=== PATIENT | male | born 1980 | race Two or more races ===

== ENCOUNTER 2019-03-28 07:46 | Emergency (ER) | payer SELFPAY ==
[~2019-03-28] VITALS: Ht 188 cm; Wt 83.0 kg
--- NOTE | 2019-03-28 07:46 | NUR ---
PT BIB FROM THE STREET FOR BIZARRE BEHAVIOR, PT TO BED 6, PT NOT ANSWERING QUESTIONS APPROPRIETLY, PT ON MONITOR, VSS, NAD NOTED, AT FOR EVAL
[2019-03-28] MEDS ORDERED: HALOPERIDOL LACTATE INJ 5 MG/ML VIAL ONE (07:49)
[2019-03-28] MEDS ORDERED: LORAZEPAM INJ 2 MG/ML VIAL ONE ×4 (07:49→20:14)
--- NOTE | 2019-03-28 07:55 | NUR ---
WANDED BY SECURITY
[2019-03-28] MEDS ORDERED: HALOPERIDOL LACTATE INJ 5 MG/ML VIAL IM ONE (08:00)
[2019-03-28] MEDS ORDERED: LORAZEPAM INJ 2 MG/ML VIAL IM ONE (08:00)
[2019-03-28 08:03] LABS: BASOPHILS % (AUTO) 0.3 % (0.0-2.0); EOSINOPHILS % (AUTO) 0.2 % (0.0-6.0); HEMATOCRIT 40 % (39-51); HEMOGLOBIN 13.7 g/dL (13.5-17.5); LYMPHOCYTES # (AUTO) 0.9 /CMM (0.8-4.8); LYMPHOCYTES % (AUTO) 8.9 % (20.0-44.0); MEAN CORPUSCULAR HGB CONC 34 g/dl (31.0-36.0); MEAN CORPUSCULAR VOLUME 92 fL (80-96); MONOCYTES # (AUTO) 0.8 /CMM (0.1-1.30); MONOCYTES % (AUTO) 8.1 % (2.0-12.0); NEUTROPHILS # (AUTO) 8.4 /CMM (1.8-8.9); NEUTROPHILS % (AUTO) 82.5 % (43.0-81.0); PLATELET COUNT (AUTO) 208 /CMM (150-450); RED BLOOD CELL COUNT(AUTO) 4.35 MIL/uL (4.5-6.0); WHITE BLOOD COUNT (AUTO) 10.2 K/uL (4.3-11.0)
[2019-03-28 08:11] LABS: CALCIUM, SERUM 9.2 mg/dL (8.5-10.1); CARBON DIOXIDE 25 mmol/L (21-32); CHLORIDE 105 mmol/L (98-107); CREATININE 1.8 mg/dL (0.6-1.3); GLUCOSE 138 mg/dL (74-106); POTASSIUM 3.9 mmol/L (3.5-5.1); SODIUM SERUM 142 mmol/L (136-145); UREA NITROGEN, BLOOD 35 mg/dL (7-18)
[2019-03-28 08:21] LABS: ACETAMINOPHEN 0 ug/ml (10-30); ALANINE AMINOTRANSFERASE 55 U/L (12-78); ALBUMIN 3.7 g/dL (3.4-5.0); ALCOHOL, BLOOD < 3 mg/dL (0-0); ALKALINE PHOSPHATASE 67 U/L (46-116); ASPARTATE AMINOTRANSFERASE 113 U/L (15-37); BILIRUBIN,DIRECT 0.1 mg/dL (0.0-0.2); BILIRUBIN,TOTAL 0.5 mg/dL (0.2-1.0); SALICYLATE 2.6 mg/dL (2.8-20.0); TOTAL PROTEIN, SERUM 7.5 g/dL (6.4-8.2)
[2019-03-28 08:29] LABS: APPEARANCE,URINE Slightly Cloudy (CLEAR); BILIRUBIN,URINE SMALL (NEGATIVE); BLOOD, URINE Negative Ery/uL (NEGATIVE); COLOR,URINE Yellow (YELLOW); KETONES,URINE Trace (NEGATIVE); LEUKOCYTE ESTERASE ,URINE Negative (NEGATIVE); NITRITE, URINE Negative (NEGATIVE); PH,URINE 5.5 (5.0-8.0); PROTEIN,URINE 100 mg/dl (NEGATIVE); UGLUCOSE Negative (NEGATIVE); UROBILINOGEN,URINE 0.2 EU/dL (0.2)
[2019-03-28 08:39] LABS: BACTERIA,URINE Rare /HPF (None Seen); RBC,URINE 0-3 /HPF (0-2); SQUAMOUS EPITHELIAL CELL,UR Few /HPF (None Seen); URINE AMORPHOUS URATE Moderate /HPF (None Seen)
--- NOTE | 2019-03-28 10:08 | NUR ---
PROVIDED W MEAL TRAY, PT STILL SLEEPING, PLACED MEAL TRAY AT BEDSIDE
--- NOTE | 2019-03-28 12:00 | NUR ---
Patient is resting comfortably in bed with eyes closed. Easily aroused. VSS
--- NOTE | 2019-03-28 14:40 | NUR ---
MEDICATED ORDERED, PT GETTING RESTLESS TRYING TO GET UP.
[2019-03-28] MEDS ORDERED: LORAZEPAM INJ 2 MG/ML VIAL IV ONE ×3 (15:00→20:30)
[2019-03-28] MEDS ORDERED: IV NS 0.9% 1,000 ML IV ONE (15:00)
--- NOTE | 2019-03-28 20:27 | NUR ---
ASSUMED CARE. PT STILL CONFUSED, RESTLESS & TRYING TO GET OUT OF GURNEY. MEDICATED ORDERED FOR CT SCAN.
[2019-03-28] MEDS ORDERED: IV D5/0.45 NACL 1,000 ML IV ONE (20:30)
--- NOTE | 2019-03-28 21:29 | NUR ---
PT BACK FROM CT. PT STABLE, RR EVEN & UNLABORED. EASILY AWAKEN BY VERBAL STIMULI & WILL GO BACK TO SLEEP. WILL CONT TO MONITOR.
[2019-03-29] MEDS ORDERED: OLANZAPINE 10 MG VIAL IM ONE ×4 (00:06→09:00)
[2019-03-29] MEDS ORDERED: WATER FOR INJECTION,STERILE 10 ML ONE ×2 (00:06→08:59)
--- NOTE | 2019-03-29 01:07 | NUR ---
pt sleeping in [place]. no signs of distress noted. pt vital signs stable. will cont to monitor pt.
[2019-03-29] MEDS ORDERED: LORAZEPAM INJ 2 MG/ML VIAL ONE (08:58)
[2019-03-29] MEDS ORDERED: LORAZEPAM INJ 2 MG/ML VIAL IVP ONE (09:00)
--- NOTE | 2019-03-29 09:00 | NUR ---
PT IS AGITATED TRYING TO GET OUT OF BED. NOT MAKING SENSE, YELLING. DR FINCH MADE AWARE.
--- NOTE | 2019-03-29 10:27 | NUR ---
PT SLEEPING, ON MONITOR. STABLE VITALS.
--- NOTE | 2019-03-29 12:53 | NUR ---
PROVIDED PT WITH FOOD TRAY
--- NOTE | 2019-03-29 14:47 | NUR ---
ATTEMPT TO MAKE PT MORE COMFORTABLE. PROVIDED WATER
--- NOTE | 2019-03-29 15:23 | NUR ---
Patient is resting comfortably in bed with eyes closed. Easily aroused. VSS
[2019-03-29] MEDS ORDERED: IV NS 0.9% 1,000 ML BAG IV ONE (16:30)
[2019-03-29] MEDS ORDERED: ONDANSETRON HCL/PF 4 MG/2 ML VIAL IVP ONE (16:30)
--- NOTE | 2019-03-29 16:48 | NUR ---
CALLED [facility] FOR TELE BED
[2019-03-29] MEDS ORDERED: IV NS 0.9% 1,000 ML IV PRN (17:28)
[2019-03-29] MEDS ORDERED: MAG HYDROX/AL HYDROX/SIMETH 30 ML UDC PO PRN (17:30)
[2019-03-29] MEDS ORDERED: Z GUARD REMEDY 2 OZ OINT TP PRN (17:30)
[2019-03-29] MEDS ORDERED: LORAZEPAM INJ 2 MG/ML VIAL IV PRN (17:30)
[2019-03-29] MEDS ORDERED: ONDANSETRON HCL/PF 4 MG/2 ML VIAL IVP PRN (17:30)
[2019-03-29] MEDS ORDERED: MAGNESIUM HYDROXIDE 30 ML UDC PO PRN (17:30)
[2019-03-29] MEDS ORDERED: ACETAMINOPHEN 325 MG TABLET PO PRN (17:30)
--- NOTE | 2019-03-29 17:30 | NUR ---
IV NOT PATENT, REMOVED AND PRESSURE APPLIED. PT REFUSED NEW IV INSERTION. AWARE.
--- NOTE | 2019-03-29 17:34 | NUR ---
TELE BED 612-4
[2019-03-29] MEDS ORDERED: ONDANSETRON HCL/PF 4 MG/2 ML VIAL ONE (17:37)
[2019-03-29 17:51] LABS: BASOPHILS # (AUTO) 0.1 /CMM (0.0-0.2); BASOPHILS % (AUTO) 0.9 % (0.0-2.0); EOSINOPHILS % (AUTO) 1.8 % (0.0-6.0); HEMATOCRIT 43 % (39-51); HEMOGLOBIN 14.7 g/dL (13.5-17.5); LYMPHOCYTES # (AUTO) 1.3 /CMM (0.8-4.8); LYMPHOCYTES % (AUTO) 17.3 % (20.0-44.0); MEAN CORPUSCULAR HGB CONC 34 g/dl (31.0-36.0); MEAN CORPUSCULAR VOLUME 93 fL (80-96); MONOCYTES # (AUTO) 0.7 /CMM (0.1-1.30); MONOCYTES % (AUTO) 9.8 % (2.0-12.0); NEUTROPHILS # (AUTO) 5.2 /CMM (1.8-8.9); NEUTROPHILS % (AUTO) 70.2 % (43.0-81.0); PLATELET COUNT (AUTO) 209 /CMM (150-450); RED BLOOD CELL COUNT(AUTO) 4.68 MIL/uL (4.5-6.0); WHITE BLOOD COUNT (AUTO) 7.4 K/uL (4.3-11.0)
[2019-03-29 17:56] LABS: CALCIUM, SERUM 8.9 mg/dL (8.5-10.1); CARBON DIOXIDE 28 mmol/L (21-32); CHLORIDE 106 mmol/L (98-107); CREATININE 1.1 mg/dL (0.6-1.3); GLUCOSE 85 mg/dL (74-106); POTASSIUM 4.7 mmol/L (3.5-5.1); SODIUM SERUM 143 mmol/L (136-145); UREA NITROGEN, BLOOD 20 mg/dL (7-18)
[2019-03-29 18:02] LABS: ALANINE AMINOTRANSFERASE 63 U/L (12-78); ALBUMIN 3.5 g/dL (3.4-5.0); ALKALINE PHOSPHATASE 70 U/L (46-116); ASPARTATE AMINOTRANSFERASE 105 U/L (15-37); BILIRUBIN,DIRECT 0.1 mg/dL (0.0-0.2); BILIRUBIN,TOTAL 0.4 mg/dL (0.2-1.0); LIPASE 111 U/L (73-393); TOTAL PROTEIN, SERUM 7.3 g/dL (6.4-8.2)
--- NOTE | 2019-03-29 18:02 | NUR ---
REPORT GIVEN TO DANIKA ORDONEZ FOR 326-2 T
[2019-03-29 18:04] LABS: ALBUMIN 3.6 g/dL (3.4-5.0); BILIRUBIN,TOTAL 0.4 mg/dL (0.2-1.0); CREATININE 1.1 mg/dL (0.6-1.3); MAGNESIUM 1.9 mg/dL (1.8-2.4); PHOSPHORUS 3.9 mg/dL (2.5-4.9); POTASSIUM 4.5 mmol/L (3.5-5.1); TOTAL PROTEIN, SERUM 7.6 g/dL (6.4-8.2)
[2019-03-29 18:12] LABS: THYROID STIMULATING HORMONE 1.55 uIU/mL (0.358-3.74)
--- NOTE | 2019-03-29 19:06 | NUR ---
Patient given written and verbal discharge instructions. Patient verbalizes understanding of instructions. Patient is ambulatory with steady gait. Refuses offer of senior living placement. Patient given list of available shelters in surrounding area.
[2019-03-29 19:08] VITALS: BP 132/78
[2019-03-30] MEDS ORDERED: PANTOPRAZOLE 40 MG TABLET.DR PO SCH (07:30)
== END 2019-03-29 19:10 | disposition home or self-care (01) ==
LOC: EDBD 07:46 → ER 07:46 → MED 03-29 17:47 → UNDOADMIN 03-29 17:47 → ER 03-29 19:10
DX: G92 Toxic encephalopathy (principal); F28 Other psychotic disorder not due to a substance or known physiological condition; F15.129 Other stimulant abuse with intoxication, unspecified
CPT/HCPCS: 36415 ×2; 70450; 71045; 80048 ×2; 80053; 80061; 80076 ×2; 80305; 80307; 80329; 81001; 82550; 82962; 83036; 83690; 83735; 84100; 84443; 84484; 85025 ×2; 96361; 96372 ×2; 96374; 96376; 99291; G0480; J1630; J2060 ×6; J2405; J3490 ×5; J7030 ×3; 81000-TC; 87081-TC